=== PATIENT | female | born 1995 | race Caucasian/White ===

== ENCOUNTER 2024-07-19 13:10 | Outpatient (CLI) | payer BC, MEDICAID | END 2024-07-19 13:11 | disposition home or self-care (01) | LOC: CSHULT 13:10 | PROVIDERS: ATTEND Family Medicine | DX: N92.0 Excessive and frequent menstruation with regular cycle (principal); N94.6 Dysmenorrhea, unspecified; N83.8 Other noninflammatory disorders of ovary, fallopian tube and broad ligament ==

== ENCOUNTER 2024-09-23 08:14 | Outpatient (CLI) | payer BC, OTHER | END 2024-09-23 08:15 | disposition home or self-care (01) | LOC: CSHULT 08:14 | PROVIDERS: ATTEND Family Medicine | DX: N83.8 Other noninflammatory disorders of ovary, fallopian tube and broad ligament (principal) | CPT/HCPCS: 76856 ==